=== PATIENT | male | born 1970 | race Caucasian/White ===

== ENCOUNTER → 2016-12-15 | Outpatient (CLI) | payer BC ==
[~2016-12-15] MED LIST: NAPR1TAB9 PO
--- NOTE | 2016-12-15 15:18 | DIAGNOSTIC IMAGING REPORT ---
C-SPINE ROUTINE 4 OR 5 VIEWS CLINICAL HISTORY: Neck pain and stiffness. COMPARISON STUDY: No previous studies for comparison. FINDINGS: Visualization of the cervical spine is adequate. Alignment is anatomic. There is no acute fracture or suspicious lesion. Disc spaces are preserved. Facet joints are intact. There is minimal multilevel endplate osteophytosis. IMPRESSION: 1. No acute cervical spine fracture or subluxation. 2. Minimal multilevel degenerative disc disease and facet arthrosis of the cervical spine. Electronically signed by: Xu Martinez M.D. 12/15/2016 3:17 PM Dictated Date/Time: 12/15/2016 3:16 PM
== END | disposition home or self-care (01) ==
LOC: C.RADBC 14:47
PROVIDERS: ATTEND Internal Medicine
DX: M47.892 Other spondylosis, cervical region (principal)

== ENCOUNTER → 2016-12-24 | Outpatient (CLI) | payer BC ==
[2016-12-24 11:08] LABS: BASO % 0.5 %; BASO ABS # 0.04 K/uL (0-0.2); COMPLETE YES; EOS % 2.7 %; HEMATOCRIT 44.2 % (42-52); IG% 0.3 %; LYMPH % 19.4 %; LYMPH ABS # 1.51 K/uL (1.2-3.4); MEAN CELL VOLUME 86.3 fL (80-100); MEAN CORPUSCULAR HEMOGLOBIN 29.5 pg (25-34); MEAN CORPUSCULAR HGB CONC 34.2 g/dl (32-36); MEAN PLATELET VOLUME 10.8 fL (7.4-10.4); MONO % 7.4 %; NEUT % 69.7 %; PLATELET COUNT 316 K/uL (130-400); RED BLOOD COUNT 5.12 M/uL (4.7-6.1); WHITE BLOOD COUNT 7.79 K/uL (4.8-10.8)
[2016-12-24 11:26] LABS: BLOOD UREA NITROGEN 18 mg/dl (7-18); BUN/CREATININE RATIO 20.8 (10-20); CARBON DIOXIDE 26 mmol/L (21-32); CHLORIDE 108 mmol/L (98-107); CHOLESTEROL 167 mg/dl (0-200); CREATININE 0.87 mg/dl (0.60-1.40); GLUCOSE 100 mg/dl (70-99); SODIUM 142 mmol/L (136-145); TRIGLYCERIDES 63 mg/dl (0-150); VERY LOW DENSITY LIPOPROT CALC 13 mg/dl
[2016-12-24 11:35] LABS: URINE APPEARANCE CLEAR (CLEAR); URINE BILIRUBIN NEG (NEG); URINE COLOR DK YELLOW; URINE NITRITE NEG (NEG); URINE SPECIFIC GRAVITY 1.024 (1.000-1.030); UROBILINOGEN NEG (NEG); ZZUR CULT IF INDIC CLEAN CATCH NO
[2016-12-24 11:36] LABS: CHOLESTEROL/HDL RATIO 3.4; HDL CHOLESTEROL 49 mg/dl; LDL CHOLESTEROL CALCULATED 105 mg/dl; MANUAL MICROSCOPIC REQUIRED? NO; REVIEW REQ? NO; THYROID STIMULATING HORMONE 0.995 uIu/ml (0.300-4.500)
== END | disposition home or self-care (01) ==
LOC: C.LABBC 07:44
PROVIDERS: ATTEND Internal Medicine
DX: R03.0 Elevated blood-pressure reading, without diagnosis of hypertension (principal); Z13.6 Encounter for screening for cardiovascular disorders